=== PATIENT | female | born 1990 | race Caucasian/White ===

== ENCOUNTER → 2018-04-27 | Outpatient (CLI) | payer OTHER | LOC: LAB.O 15:54 | PROVIDERS: ATTEND Obstetrics & Gynecology | DX: O09.31 Supervision of pregnancy with insufficient antenatal care, first trimester (principal); Z3A.12 12 weeks gestation of pregnancy ==

== ENCOUNTER 2020-01-25 16:59 | Emergency (ER) | payer SELFPAY ==
[2020-01-25] MEDS ORDERED: ONDANSETRON INJ 4 MG/2 ML VIAL IV ONE (17:19)
[2020-01-25] MEDS ORDERED: SODIUM CHLORIDE 0.9% 1000ML 1,000 ML IVS PRN ×2 (17:19→21:11)
[2020-01-25] MEDS ORDERED: MORPHINE SULFATE INJ 10 MG/ML VIAL IV ONE (17:19)
[2020-01-25] MEDS ORDERED: fentaNYL CITRATE INJ 50 MCG/ML 2 ML AMP IV ONE (17:39)
--- NOTE | 2020-01-25 17:39 | ED.PDOC ---
History of Present Illness - General Time Seen by Provider: 01/25/20 17:07 Information Source: patient, RN notes reviewed, Vital Signs reviewed Exam Limitations: no limitations - History of Present Illness Initial Comments: 29 yo F complains of internmittent abdominal pain that started at noon today. associated with n/v/d. no black or bloody bm. Hx of choleycysectomy and c- section. denies recent etoh intake. no fever. Abdominal Pain Onset Location: epigastric Pain Radiation: back Review of Systems - Review of Systems Constitutional: Denies: chills, fever EENTM: Denies: blurred vision, throat pain, mouth pain Respiratory: States: cough. Denies: short of breath Cardiology: Denies: chest pain, palpitations Gastrointestinal/Abdominal: States: abdominal pain, diarrhea, nausea, vomiting Genitourinary: Denies: dysuria, frequency, hematuria Musculoskeletal: Denies: joint swelling, muscle pain, neck pain Skin: Denies: rash Neurological: Denies: headache, numbness, paresthesia, seizure, tingling, tremors, weakness Endocrine: Denies: increased hunger, increased thirst, increased urine, unexplained weight gain, unexplained weight loss Hematologic/Lymphatic: Denies: easy bleeding, easy bruising Past Medical History (General) - Patient Medical History Hx Diabetes: No Hx Renal Disease: Yes - Nephrotic Syndrome - Vaccination History Hx Tetanus, Diphtheria Vaccination: No Hx Influenza Vaccination: No Hx Pneumococcal Vaccination: No - Social History Hx Tobacco Use: Yes Hx Alcohol Use: No Hx Substance Use: No - Female History Hx Last Menstrual Period: 12/22/12 Patient : No Expected Date of Delivery:: 10/30/13 Family Medical History - Family History Maternal Grandparents Hx Family Congestive Heart Failure: Yes Hx Family Hypertension: Yes Hx Family Stroke: Yes Hx Family Diabetes: Yes Brother Living Status: Still Living Hx Family Asthma: Yes Physical Exam - Physical Exam General Appearance: Alert, Comfortable, No apparent distress, Obese, Well Developed, Well Groomed, Well Hydrated, Well Nourished Eyes, Ears, Nose, Throat Exam: PERRL/EOMI, normal ENT inspection, TMs normal Neck: non-tender, full range of motion, supple, normal inspection Respiratory: chest non-tender, lungs clear, normal breath sounds, no respiratory distress, no accessory muscle use Cardiovascular/Chest: normal peripheral pulses, regular rate, rhythm, no edema, no gallop, no JVD, no murmur Peripheral Pulses: 2+ Gastrointestinal/Abdominal: normal bowel sounds, non tender, soft, no organomegaly, no pulsatile mass Rectal Exam: deferred Back Exam: normal inspection, no CVA tenderness, no vertebral tenderness Extremity: normal range of motion, non-tender, normal inspection, no pedal edema, no calf tenderness, normal capillary refill 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 patient received 1 mg dilaudid, zofran and 1 L NS bolus. VSS, pain improved. Patient has significant leukocyotsis. Patient after multiple attempts was able to get IV access. Repeat VS HR 83, BP 117/80, saturation 98% on RA. Cough seems improved. Most likely aspirated when having emesis. Patient resting comfortably. will repeat CBC and lactic acid. Lactic acid is 2, repeat wbx 17. exam is completely benign. she is PO tolerant. recommend she has repeat wbc on Tuesday. The data reviewed when caring for this patient included: nurse notes, prior records, etc. The history and assessments from nurses notes were reviewed and considered, and the patient's home medication list was also reviewed and considered. My assessment and the results of testing completed here in the ED were discussed with the patient/family. All questions were answered, and they express understanding of my assessment and the plan. They have been instructed to return if their symptoms worsen, and have been asked to follow up with their primary care physician to recheck today's presenting complaint. SHe is to have repeat blood work in 2 -3 days to trend her wbc. Strict abdominal return precautions given. I have reviewed medication, benefits, alternatives and side effects. Patient decided to proceed with medication.VSS, patient discharged home in stable condition. Vandana Garcia DO #[id number] 01/26/20 06:46 - Results/Orders Results/Orders: 01/25/20 17:19 Sodium Chloride 0.9% 1000ML [Ns 1000 ml] 1,000 ml IVS STAT 01/25/20 19:00 EKG STAT 01/25/20 19:13 Hold Metformin x 48Hrs [id number] 01/25/20 21:11 Sodium Chloride 0.9% 1000ML [Ns 1000 ml] 1,000 ml IVS STAT 01/25/20 22:36 URINALYSIS Stat 01/25/20 22:42 LACTIC ACID Stat CBC (AUTOMATED) W/AUTO DIFF Stat Laboratory Results WBC 25.4 K/mm3 (4.8-10.8) H* 01/25/20 18:03 RBC 5.31 M/mm3 (4.20-5.40) 01/25/20 18:03 Hgb 15.3 gm/dL (12.0-16.0) 01/25/20 18:03 Hct 44.0 % (36.0-47.0) 01/25/20 18:03 MCV 82.9 fl (81.0-99.0) 01/25/20 18:03 MCH 28.8 pg (27.0-31.0) 01/25/20 18:03 MCHC 34.7 g/dL (33.0-37.0) 01/25/20 18:03 RDW 13.4 % (11.5-14.5) 01/25/20 18:03 Plt Count 261 K/mm3 (130-400) 01/25/20 18:03 MPV 10.8 fl (7.40-10.4) H 01/25/20 18:03 Absolute Neuts (auto) Not Reportable 01/25/20 18:03 Absolute Lymphs (auto) Not Reportable 01/25/20 18:03 Absolute Monos (auto) Not Reportable 01/25/20 18:03 Absolute Eos (auto) Not Reportable 01/25/20 18:03 Total Counted Cancelled 01/25/20 18:03 Neutrophils % Not Reportable 01/25/20 18:03 Neutrophils % (Manual) 86.0 % (42.0-78.0) H 01/25/20 18:03 Neutrophils % (Manual) Cancelled 01/25/20 18:03 Lymphocytes % Not Reportable 01/25/20 18:03 Lymphocytes % (Manual) 12.0 % 01/25/20 18:03 Lymphocytes % (Manual) Cancelled 01/25/20 18:03 Monocytes % Not Reportable 01/25/20 18:03 Monocytes % (Manual) 2.0 % 01/25/20 18:03 Monocytes % (Manual) Cancelled 01/25/20 18:03 Eosinophils % Not Reportable 01/25/20 18:03 Basophils % Not Reportable 01/25/20 18:03 Band Neutrophils Cancelled 01/25/20 18:03 Eosinophils Cancelled 01/25/20 18:03 Basophils Cancelled 01/25/20 18:03 Metamyelocytes Cancelled 01/25/20 18:03 Myelocytes Cancelled 01/25/20 18:03 Promyelocytes Cancelled 01/25/20 18:03 Nucleated RBCs Cancelled 01/25/20 18:03 Differential Comment Cancelled 01/25/20 18:03 Hypersegmented Polys Cancelled 01/25/20 18:03 Blast Cells Cancelled 01/25/20 18:03 Plasma Cells Cancelled 01/25/20 18:03 Other Cell Type Cancelled 01/25/20 18:03 Hypochromia Cancelled 01/25/20 18:03 Toxic Granulation Cancelled 01/25/20 18:03 Dohle Bodies Cancelled 01/25/20 18:03 Miky Rods Cancelled 01/25/20 18:03 Platelet Estimate Cancelled 01/25/20 18:03 Platelet Estimate Normal (NORMAL) 01/25/20 18:03 Normal RBC Morphology Cancelled 01/25/20 18:03 Polychromasia Cancelled 01/25/20 18:03 Poikilocytosis Cancelled 01/25/20 18:03 Basophilic Stippling Cancelled 01/25/20 18:03 Anisocytosis Cancelled 01/25/20 18:03 Microcytosis Cancelled 01/25/20 18:03 Macrocytosis Cancelled 01/25/20 18:03 Spherocytes Cancelled 01/25/20 18:03 Sickle Cells Cancelled 01/25/20 18:03 Target Cells Cancelled 01/25/20 18:03 Ovalocytes Cancelled 01/25/20 18:03 Stomatocytes Cancelled 01/25/20 18:03 Helmet Cells Cancelled 01/25/20 18:03 Pierce-[place] Bodies Cancelled 01/25/20 18:03 Polo Rings Cancelled 01/25/20 18:03 Hudson Cells Cancelled 01/25/20 18:03 Acanthocytes (Spur) Cancelled 01/25/20 18:03 Rouleaux Cancelled 01/25/20 18:03 Schistocytes Cancelled 01/25/20 18:03 RBC Morph Comment Cancelled 01/25/20 18:03 PUBS Tear Drop Cells Cancelled 01/25/20 18:03 Sodium 140 mmol/L (135-145) 01/25/20 18:03 Potassium 3.8 mmol/L (3.6-5.0) 01/25/20 18:03 Chloride 107 mmol/L (101-111) 01/25/20 18:03 Carbon Dioxide 19 mmol/L (21-31) L 01/25/20 18:03 Anion Gap 17.8 (12-18) 01/25/20 18:03 BUN 13 mg/dL (7-18) 01/25/20 18:03 Creatinine 0.71 mg/dL (0.6-1.3) 01/25/20 18:03 BUN/Creatinine Ratio 18.3 (10-20) 01/25/20 18:03 Random Glucose 127 mg/dL (70-105) H 01/25/20 18:03 Serum Osmolality 281.1 mOsm/L (275-295) 01/25/20 18:03 Calcium 9.3 mg/dL (8.4-10.2) 01/25/20 18:03 Total Bilirubin 0.8 mg/dL (0.2-1.0) 01/25/20 18:03 AST 70 IU/L (10-42) H 01/25/20 18:03 ALT 89 IU/L (10-60) H 01/25/20 18:03 Alkaline Phosphatase 88 IU/L (42-121) 01/25/20 18:03 Serum Total Protein 8.1 gm/dL (6.4-8.2) 01/25/20 18:03 Albumin 4.1 g/dl (3.2-5.5) 01/25/20 18:03 Globulin 4.0 gm/dL (2.3-3.5) H 01/25/20 18:03 Albumin/Globulin Ratio 1.0 (1.1-1.9) L 01/25/20 18:03 Lipase 26 U/L (22-51) 01/25/20 18:03 Serum HCG, Qual Negative (NEGATIVE) 01/25/20 17:35 Urine HCG, Qual Cancelled 01/25/20 17:35 - EKG/XRAY/CT EKG: Sinus, Tachy Comments: HR 123, normal intervaqls, nonspecific st/twave changes, no prior ecg XRAY: chest - possible infiltrate vs atelectasis in perihilar region. CT: Scattered colonic air-fluid levels which may reflect enterocolitis. Departure - Departure Clinical Impression: Gastroenteritis, Community acquired bilateral lower lobe pneumonia Time of Disposition: 23:10 Disposition: Discharge to Home or Self Care Instructions: Pneumonia in Adults, Nausea and Vomiting, Adult (DC), Viral Gastroenteritis, Adult (DC) Diet: bland diet Prescriptions: Amoxicillin & Pot Clavulanate [Augmentin Tab] 875 mg PO BID 5 Days #10 tab Dicyclomine HCl [Bentyl] 20 mg PO QID PRN #20 tab PRN Reason: Abdominal Cramping Ondansetron HCl [Zofran] 4 mg PO TID PRN #15 tab PRN Reason: Vomiting Home Medications: Ambulatory Orders Amoxicillin & Pot Clavulanate [Augmentin Tab] 875 mg PO BID 5 Days #10 tab 01/25/20 Dicyclomine HCl [Bentyl] 20 mg PO QID PRN #20 tab 01/25/20 Ondansetron HCl [Zofran] 4 mg PO TID PRN #15 tab 01/25/20 Additional Instructions: Follow up with your primary care doctor in 1-5 days, return if symptoms are worsening.
[2020-01-25] MEDS ORDERED: ONDANSETRON ODT 8 MG TAB SL ONE (18:40)
[2020-01-25] MEDS ORDERED: HYDROmorphone HCL INJ 2 MG/ML VIAL IM ONE (18:40)
--- NOTE | 2020-01-25 20:54 | CT ---
EXAMINATION: Abdomen/Pelvis w/Contrast CLINICAL HISTORY: midepigastric pain COMPARISON: None Available TECHNIQUE: Contiguous axial images of the abdomen and pelvis were obtained after the administration of intravenous contrast followed by reconstruction images.This exam was performed according to our departmental dose-optimization program, which includes automated exposure control, adjustment of the mA and/or kV according to patient size and/or use of iterative reconstruction technique. FINDINGS: There is diffuse fatty infiltration of the liver. The spleen, adrenals, pancreas are within normal limits. Status post cholecystectomy. No bowel obstruction or free intraperitoneal air. Scattered colonic air-fluid levels which may reflect enterocolitis. No colonic mucosal thickening. Normal appendix. No diverticulitis. No inflammatory changes or abnormal fluid collections in the abdomen or pelvis. Uterus and urinary bladder are within normal limits. . IMPRESSION: Scattered colonic air-fluid levels which may reflect enterocolitis. No other evidence of acute intra-abdominal pathology. Electronically signed by: Dario Sotomayor MD 01/25/2020 8:52 PM CDT
[2020-01-25] MEDS ORDERED: SODIUM CHLORIDE 0.9% 1000ML 1,000 ML ONE (21:12)
[2020-01-25] MEDS ORDERED: SODIUM CHLORIDE 0.9% (FLUSH) 10 ML SYG ONE (21:16)
--- NOTE | 2020-01-25 21:41 | RAD ---
EXAM DESCRIPTION: Chest,2 Views CLINICAL HISTORY: 29 years Female cough COMPARISON: None TECHNIQUE: Two view study of the chest was performed. FINDINGS: Cardiac size is within normal limits. Central vessels are not increased. Infrahilar airspace opacity on the right. No abnormal airspace opacity on left. Mild elevation right hemidiaphragm. No effusions bilaterally. No pneumothorax. IMPRESSION: Atelectatic change versus infiltrate right infrahilar region. Electronically signed by: Ndyia Lopez MD 01/25/2020 9:40 PM CDT
[2020-01-25] MEDS ORDERED: AMPICILLIN & SULBACTAM SODIUM 3 GM in SODIUM CHL 0.9% 100ML MINI-BAG 100 ML IVPB ONE (23:17)
[2020-01-26 00:05] VITALS: BP 124/79; TEMP 96.8; O2SAT 98
== END 2020-01-26 00:03 | disposition home or self-care (01) ==
LOC: ER 16:59
DX: J18.9 Pneumonia, unspecified organism (principal); K52.9 Noninfective gastroenteritis and colitis, unspecified; R00.0 Tachycardia, unspecified; N04.9 Nephrotic syndrome with unspecified morphologic changes; Z87.891 Personal history of nicotine dependence
CPT/HCPCS: 36415; 71046; 74177; 80053; 81001; 83605; 83690; 84703; 85025; 93005; A4216; J0295; J1170; J2405; J7030; J7050